=== PATIENT | male | born 1965 | race Caucasian/White ===

== ENCOUNTER 2018-11-24 09:55 | Outpatient (CLI) | payer OTHER ==
[~2018-11-24 09:55] MED LIST: COZAAR50 MG
== END 2018-11-24 10:44 | disposition home or self-care (01) ==
LOC: LAB 09:55
DX: K57.32 Diverticulitis of large intestine without perforation or abscess without bleeding (principal); K92.1 Melena; Z86.010 Personal history of colon polyps; K21.9 Gastro-esophageal reflux disease without esophagitis; K29.00 Acute gastritis without bleeding

== ENCOUNTER 2018-12-02 11:15 | Day surgery (SDC) | payer OTHER | END 2018-12-02 16:30 | disposition home or self-care (01) | LOC: AMB-ENDOS 11:15 | DX: K57.32 Diverticulitis of large intestine without perforation or abscess without bleeding (principal); K64.1 Second degree hemorrhoids ==